=== PATIENT | male | born 1980 | race Caucasian/White ===

== ENCOUNTER 2016-04-21 11:23 | Emergency (ER) | payer OTHER ==
[~2016-04-21] VITALS: Ht 175.3 cm; Wt 70.3 kg
[2016-04-21] MEDS ORDERED: LIDOCAINE 1%-EPI 1:100,000 20 ML VIAL ONE (11:39)
[2016-04-21 12:04] VITALS: BP 122/75
== END 2016-04-21 12:05 | disposition home or self-care (01) ==
LOC: ER 11:26
DX: K91.841 Postprocedural hemorrhage of a digestive system organ or structure following other procedure (principal); E03.9 Hypothyroidism, unspecified
CPT/HCPCS: 99283; A4606; A6402; A6403; J3490; Z7610